=== PATIENT | male | born 2000 | race Caucasian/White ===

== ENCOUNTER 2022-05-07 16:10 | Emergency (ER) | payer OTHER ==
[2022-05-07 16:58] VITALS: BP 120/60; PULSE 70; TEMP 98; BMI 24.3
== END 2022-05-07 16:49 | disposition home or self-care (01) ==
LOC: FER 16:10
DX: S61.412A Laceration without foreign body of left hand, initial encounter (principal); W26.0XXA Contact with knife, initial encounter
CPT/HCPCS: 99281-25